=== PATIENT | female | born 1975 | race Caucasian/White ===

== ENCOUNTER 2018-08-17 06:39 | Day surgery (SDC) | payer OTHER, SELFPAY ==
[2018-08-12 12:35] LABS: Hematocrit 40.8 % (37-47); Hemoglobin 13.5 g/dl (12.0-15.0); Mean Corp Hgb Conc 33.1 g/gl (32-36); Mean Corpuscular Hgb 30.6 pg (27.0-32.0); Mean Corpuscular Volume 92.5 fL (81-99); Mean Platelet Vol. 11.5 fl (6.2-12.0); Platelet Count 238 K/mm3 (150-450); RBC Distribution Width CV 12.6 % (11.6-14.6); RBC Distribution Width SD 42.6 fl (35.1-43.9); Red Blood Count 4.41 M/mm3 (4.2-5.4)
[2018-08-12 12:37] LABS: Scan Indicated on CBC? Y/N NO
[2018-08-12 12:45] LABS: Prothrombin Time (Protime)PT. 13.2 SECONDS (11.7-14.9)
[2018-08-12 12:46] LABS: Partial Thromboplast Time 24.6 Seconds (24.1-36.2)
[2018-08-12 13:09] LABS: Pregnancy, Serum, hCG Quali. NEGATIVE Negative (0-9 Nonpreg)
--- NOTE | 2018-08-16 12:43 | PCM.HP.BLA ---
History and Physical Date of Admission: 08/17/18 Surgical History and Physical Alexandria Smalls, a 42 year old female 2 0 0 0 2, presents for D and C and hysteroscopy on August 17, 2018 at 10:45. -- Irregular Menses, Endometrial Polyps -- Really tired of this as she has tried multiple pills to help and nothing is helping. U/S shows endometrial polyps. MEDICATIONS HISTORY: Current medications prescribed by our practice are: 1. Ortho-Cyclen (28) 0.25 mg-35 mcg tablet, One pill by mouth once a day Patient is also takin. Calcium 600 + D(3) 600 mg(1,500mg) -400 unit Tablet, One pill by mouth once a day ALLERGIES: NKDA Infections - Chicken pox Illnesses - mild anemia Accidents - None Hospitalizations - see surgery Review of Systems: GENERAL - Denies fever, or chills SKIN - Denies skin changes EYES - Denies visual changes EARS - Denies difficulty hearing NOSE - Denies nasal congestion or bleeding MOUTH - Denies sore throat or difficulty swallowing NECK - Denies pain or swelling RESPIRATORY - Denies shortness of breath or wheezing CARDIOVASCULAR - Denies palpitations or chest pain GASTROINTESTINAL - Denies nausea, vomiting, diarrhea, constipation GENITOURINARY - Denies dysuria, frequency of urination, incontinence of urine MUSCULOSKELETAL - Denies joint or muscle pain NEUROLOGICAL - Denies localized numbness or weakness PSYCHIATRIC - Denies depression or anxiety ENDOCRINE - Denies heat or cold intolerance, weight loss or gain HEMATO-IMMUNOLOGIC - Denies excesive bleeding with cuts SOCIAL HISTORY: Alcohol Use - RARELY Smoking - Never Diet - no special diet Lifestyle - moderate stress lifestyle and Exercise - regular Seat Belt Use - always Employer - [employer] 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 Father: Heart Disease. Brother: COPD, Alcoholism and DM II. Sister: Osteoarthitis, Hyperlipidemia and DM II. MENSTRUAL HISTORY: LMP Known?- DefiniteAmount/Duration - 6-7 DAYS, Regularity - prolonged, Frequency - monthly days, LMP - 07/19/18, Age Onset Menarche - 11 PAST PREGNANCIES: Total Pregnancies - 2; Full Term Pregnancies - 2; Premature - 0; Abortions, Induced - 0; Abortions, Spontaneous - 0; Ectopics - 0; Multiple Births - 0; Living Children - 2 SURGICAL HISTORY: 1. Ganglion Cyst Removed x 2 ; Romario Miller - 2. (L) Breast Lumpectomy 2001 ; Romario Miller - 3. (L) Ovarian Cyst 2002 ; Juan Garza MD - PHYSICAL EXAM BP- 120/80 Sitting, Left arm, regular cuff Weight- 175.06982 lbs Height- 66 inch BMI:28.30 CONSTITUTIONAL - NAD, well nourished, and well developed SKIN - No rash, lesions, or ulcers HEENT - Normocephalic, PERRLA, EOMI NECK - No nodes, no nuchal rigidity and thyroid normal size and texture LYMPH NODES - Palpation of lymph nodes in neck and groins within normal limits LUNGS - CTA x2 without wheezes, crackles or rales CARDIAC - Regular rate and rhythm without rubs, murmurs, or gallops BREAST - No dominant masses, no tenderness, no axillary adenopathy, no nipple discharge, no skin changes ABDOMEN - Without hepatosplenomegaly, distention, masses, rebound, or guarding; normal bowel sounds; no hernias EXTREMITIES - No edema or calf tenderness NEUROLOGICAL - Cranial nerves II-XII grossly intact PSYCHIATRIC - A and O to time, place, person, mood and affect External Genitial Vagina - non-tender without lesions Urethra/Urethral Meatus - non-tender Bladder - non-tender Vagina - vaginal verdugo are pink and moist without loss of rugae and no evidence of atropy Cervix - without cervical motion tenderness and has normal size and features without evident lesions Uterus - multiparous size 6 cm & wt 75-125 g Adnexa - clear without massess or tenderness ASSESSMENT/PLAN: 1. Abnormal Uterine Bleeding, Unspec Reviewed results of pelvic u/s showing at least 2 EM polyps present. Plan to proceed with D and C and H/S. Discussed RBAs and all questions answered.
[2018-08-17] VITALS (9 sets, daily range): BP systolic 104–142; BP diastolic 73–87; PULSE 58–79; RESP 16; TEMP 36.6–36.9; O2SAT 97–100; BMI 28.7
--- NOTE | 2018-08-17 | IMM_PTH ---
PATIENT: DANIEL NGUYEN LOC: [facility] U#:[id number] AGE/SX: 42/F ROOM: RE08/17/[address]: Dr. Arnoldo Vuong MD : 1975 BED: DIS: 08/17/2018 SPEC #: [id number] RECD: 08/18/18 12:30 STATUS: ADRI RERazia #: [id number] GAMALIEL: 08/17/18 00:[address]: Arnoldo Vuong DEPT: IMMUNOHISTOCHEMISTRY RECD BY: La Gil ENTERED: 08/18/18 12:31 SP TYPE: IMMUNO OTHR DR: Dr. Cary Cervantes MD Tissues: Endometrium, NOS Procedures: CD138 (initial) CD138 (add) PHYSICIAN & INSTITUTION [place] [id number] SPECIMEN INFORMATION: Tissue Source: Endometrial curettings and polyps Clinical Info: Abnormal uterine bleeding Specimen Number: [id number] #1-3 CPT code: 64641, 54721 x2 METHODOLOGY: Deparaffinized sections of prefer/formalin-fixed tissue or PAP/DQ stained slides are incubated with monoclonal/polyclonal antibodies/oligonucleotide probes. Localization is made via biotin free immunoperoxidase method. Appropriate controls are performed and reacted as expected. Results on target cell population are indicated in the following table: RESULTS: ANTIBODY / CLONE RESULT Block 1 CD138 (B-A38) negative Block 2 CD138 (B-A38) positive, rare cells Block 3 CD138 (B-A38) negative These tests were developed and their performance characteristics determined by [facility]. They may not have been cleared or approved by the U.S. Food and Drug Administration. The FDA has determined that such clearance or approval is not necessary. INTERPRETATION: Endometrial curettings and polyps: Rare plasma cells are noted suspicious for chronic endometritis. SJ:ramiro 08/19/18
--- NOTE | 2018-08-17 | EMB_PTH ---
PATIENT: DANIEL NGUYEN LOC: [facility] [place] U#:[id number] AGE/SX: 42/F ROOM: RE08/17/[address]: Dr. Arnoldo Vuong MD : 1975 BED: DIS: 08/17/2018 SPEC #: [id number] RECD: 08/17/18 10:01 STATUS: ADRI LIANET #: [id number] GAMALIEL: 08/17/18 00:[address]: Arnoldo Vuong DEPT: SURGICAL PATHOLOGY RECD BY: Saman Birmingham ENTERED: 08/17/18 10:01 SP TYPE: ENDOM BX/C MANJINDER DR: Dr. Cary Cervantes MD Tissues: Endometrium, NOS Procedures: Surgery Specimen Level IV HEADER OPERATION: Hysteroscopy, dilation and curettage PRE-OP DIAGNOSIS: Abnormal uterine bleeding TISSUE SUBMITTED: Endometrial curettings and polyps MICROSCOPIC DIAGNOSIS Endometrial curettings and polyp: Consistent with exogenous hormone effects with extensive glandular breakdown. Suspicious for chronic endometritis. SJ:ramiro 08/18/18 COMMENT Immunohistochemistry ([id number]) shows rare plasma cells, suspicious for chronic endometritis. Case has been reviewed in consultation with Dr. Fagan who concurs with the above diagnosis. IDC:AM MICROSCOPIC DESCRIPTION Slides are reviewed. GROSS DESCRIPTION Received in fixative is one container labeled with the patient's name and designated endometrial curettings and polyp. The specimen consists of multiple fragments of pink hemorrhagic soft tissue mixed with mucoid tissue that in aggregate measure 7.5 x 3 x 0.3 cm. The entire specimen is submitted in three cassettes. / MERNA:ramiro 08/17/18 TC:5 CPT: 81038
[2018-08-17 07:18] LABS: Internal QC Validated? YES +Cl - CLEAR BKGD; Pregnancy, Urine Negative Negative
--- NOTE | 2018-08-17 08:11 | OP.PCM_ITS ---
Operative Report Date of Procedure: 08/17/18 Surgeon: Arnoldo Vuong MD, FACOG Anesthesia: Rasta Willis CRNA Type of Anesthesia: General LMA Pre-Op Diagnosis: Menorrhagia, Endometrial Polyps Postoperative diagnosis: Menorrhagia, Endometrial Polyps Procedure: Diagnostic Hysteroscopy, Dilation and Curettage Findings: 8-10 cm endometrial cavity with multiple polyps visualized. No fibroids noted. [place] endometrium. Cervix protruded to within 2-3 cm of the vaginal introitus with LAVH technically feasible. Indications: This is a 42 year old patient who has the above diagnosis. The patient has been counseled regarding the risk and indications of this procedure including the possibility of bleeding, infection, and injury to surrounding structures such as bowel bladder. All questions were answered to reconsider the patient well-informed. Procedure: The patient was taken to the operating room where after induction of general anesthesia, she was placed in the dorsolithotomy position and prepped and draped in the usual sterile fashion. The bladder was drained of approximately 10 cc of clear yellow urine with a catheter. Anterior cervix was grasped with the tenaculum and dilated to about 4-5 mm. A 3 mm hysteroscope was placed in the uterus of the above findings were noted. Cervix was dilated to about 7-8 mm and uterus was gently curetted removing all contents. Hysteroscope was reinserted and all material was noted to be removed. In the course of the procedure approximately 100 cc of saline distending media was used and virtually all of this was recovered. Patient tolerated procedure well was taken to recovery room in satisfactory condition sponge instrument and needle counts were all reportedly correct. Estimated blood loss for the case was minimal. Cefotetan 2 g IV was given prior to beginning the operative procedure. Specimens to pathology was endometrial curettings
--- NOTE | 2018-08-17 08:12 | DCINST_ITS ---
Discharge Diet: No Restrictions Discharge Activity: Return to Normal Activity, May Shower, May Take a Tub Bath Call your doctor if you observe: Fever of 101 or Higher, Inability to urinate, Inability to have a bowel movement, Using more than one pad per hour Allergies/Adverse Reactions: Allergies No Known Allergies Allergy (Verified 08/12/18 15:44) Medications to take at Discharge Calcium Carbonate [Calcium] 600 mg PO DAILY 08/12/18 Sprintec 1 cap PO DAILY 08/12/18 Primary Care Physician: Cary Cervantes MD [Primary Care Provider] - Test Results: Test results from this visit will be discussed in further detail at your follow- up appointment, if applicable. Please Follow Up With: Arnoldo Vuong MD When: 2-3 weeks
== END 2018-08-17 10:15 | disposition home or self-care (01) ==
LOC: SDC 06:40 → AC 06:41
PROVIDERS: Anesthesiology; Visit Provider Obstetrics & Gynecology
PROC: 0UDB8ZZ Extraction of Endometrium, Via Natural or Artificial Opening Endoscopic (ICD-10-PCS; CPT 58558; principal; 2018-08-17 08:10)
DX: N92.0 Excessive and frequent menstruation with regular cycle (principal); N84.0 Polyp of corpus uteri
CPT/HCPCS: 00952; 58558; 36415; 81025; 84703; 85027; 85610; 85730; 86850; 86900; 88305; 88341; 88342; J7120

== ENCOUNTER → 2018-09-18 12:05 | Outpatient (CLI) | payer OTHER, SELFPAY | PROVIDERS: Visit Provider Obstetrics & Gynecology | DX: N93.9 Abnormal uterine and vaginal bleeding, unspecified (principal) | CPT/HCPCS: 85014; 85018 ==

== ENCOUNTER → 2020-10-17 11:45 | Outpatient (CLI) | payer OTHER, SELFPAY ==
[2018-08-17 07:16] VITALS: BMI 28.7
[2020-10-23 20:02] LABS: HPV Reflexed? NOT INDICATED
== END ==
PROVIDERS: Visit Provider Obstetrics & Gynecology
DX: Z12.4 Encounter for screening for malignant neoplasm of cervix (principal)
CPT/HCPCS: 88175; G0145

== ENCOUNTER 2021-12-10 08:48 | Day surgery (SDC) | payer OTHER, SELFPAY ==
[2021-12-06 14:46] LABS: Hemoglobin 13.7 g/dL (12.0-15.0); Mean Corp Hgb Conc 32.6 g/dL (32-36); Mean Platelet Vol. 11.4 fl (6.2-12.0); Platelet Count 267 K/mm3 (150-450); RBC Distribution Width CV 12.4 % (11.6-14.6); RBC Distribution Width SD 43.3 fl (35.1-43.9); Red Blood Count 4.42 M/mm3 (4.2-5.4); White Blood Count 9.7 K/mm3 (4.4-11.0)
[2021-12-06 14:54] LABS: International Normalized Ratio 1.1; Prothrombin Time (Protime)PT. 13.1 SECONDS (11.7-14.9)
[2021-12-06 14:55] LABS: Partial Thromboplast Time 25.6 Seconds (24.1-36.2)
[2021-12-06 14:56] LABS: Internal QC Validated? YES +Cl - CLEAR BKGD; Pregnancy, Urine Negative Negative
[2021-12-06 15:20] LABS: Creatinine, Serum 0.66 mg/dL (0.55-1.02); EST Glomerular Filtration Rate 103 mL/min (>60); Est Glom Filt Rate - Afr Amer 124 mL/min (>60)
[2021-12-10] VITALS (14 sets, daily range): BP systolic 112–165; BP diastolic 75–99; PULSE 59–77; RESP 14–16; TEMP 36.1–37.2; O2SAT 73–100; BMI 28.8
--- NOTE | 2021-12-10 07:28 | HP.PCM_ITS ---
History and Physical Date of Admission: 12/10/21 Surgical History and Physical Alexandria Smalls, a 46 year old female 2 0 0 0 2, presents for RAVH/BS on December 10, 2021 at . -- Recurrent Endometrial Polyps and Menorrhagia -- Hx of D and C 08/17/2018. Afterward states that she started with intermittent gushes of blood. SHe states that had an episode subsided and patient thought was doing better, but then woke in the middle of the night and had bleed through her clothes and bedding. She was at work and states that saturated her clothes and onto chair she was sitting on. Regular monthly menses while taking ortho cyclen for control. Now has bleeding 2 or 3 times per cycle between menses. This started about 6 months ago. 2 to 3 years ago she had similar bleeding, had a D and C where multiple endometrial polyps were visualized. Since then her bleeding has been well controlled with OCPs. Irregular menses which began 05/19. Has tried switching OCPs to no avail. MEDICATIONS HISTORY: Patient is also takin. Calcium 600 + D(3) 600 mg(1,500mg) -400 unit Tablet, One pill by mouth once a day ALLERGIES: NKDA Infections - Chicken pox Illnesses - mild anemia Accidents - None Hospitalizations - see surgery Review of Systems: GENERAL - Denies fever, or chills SKIN - Denies skin changes EYES - Denies visual changes EARS - Denies difficulty hearing NOSE - Denies nasal congestion or bleeding MOUTH - Denies sore throat or difficulty swallowing NECK - Denies pain or swelling RESPIRATORY - Denies shortness of breath or wheezing CARDIOVASCULAR - Denies palpitations or chest pain GASTROINTESTINAL - Denies nausea, vomiting, diarrhea, constipation GENITOURINARY - Denies dysuria, frequency of urination, incontinence of urine MUSCULOSKELETAL - Denies joint or muscle pain NEUROLOGICAL - Denies localized numbness or weakness PSYCHIATRIC - Denies depression or anxiety ENDOCRINE - Denies heat or cold intolerance, weight loss or gain HEMATO-IMMUNOLOGIC - Denies excesive bleeding with cuts SOCIAL HISTORY: Alcohol Use - RARELY Smoking - Never Diet - no special diet Lifestyle - moderate stress lifestyle and Exercise - regular Seat Belt Use - always 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 Father: Heart Disease. Brother: COPD, Alcoholism and DM II. Sister: Osteoarthitis, Hyperlipidemia and DM II. MENSTRUAL HISTORY: LMP Known?- DefiniteAmount/Duration - 5 to 7 days, Regularity - Regular, Frequency - monthly days, LMP - 11/16/21, Age Onset Menarche - 11 PAST PREGNANCIES: Total Pregnancies - 2; Full Term Pregnancies - 2; Premature - 0; Abortions, Induced - 0; Abortions, Spontaneous - 0; Ectopics - 0; Multiple Births - 0; Living Children - 2 SURGICAL HISTORY: 1. Ganglion Cyst Removed x 2 ; Romario Miller 2. (L) Breast Lumpectomy 2001 ; Romario Miller 3. (L) Ovarian Cyst 2002 ; Juan Garza MD 4. 08/17/2018 dx hysteroscopy, D and C ; Arnoldo Vuong M.D. PHYSICAL EXAM BP- 152/86 Sitting, Right arm, regular cuff Weight- 179.0 lbs Height- 66 inch BMI:28.9 CONSTITUTIONAL - NAD, well nourished, and well developed SKIN - No rash, lesions, or ulcers HEENT - Normocephalic, PERRLA, EOMI NECK - No nodes, no nuchal rigidity and thyroid normal size and texture LYMPH NODES - Palpation of lymph nodes in neck and groins within normal limits LUNGS - CTA x2 without wheezes, crackles or rales CARDIAC - Regular rate and rhythm without rubs, murmurs, or gallops BREAST - No dominant masses, no tenderness, no axillary adenopathy, no nipple discharge, no skin changes ABDOMEN - Without hepatosplenomegaly, distention, masses, rebound, or guarding; normal bowel sounds; no hernias EXTREMITIES - No edema or calf tenderness NEUROLOGICAL - Cranial nerves II-XII grossly intact PSYCHIATRIC - A and O to time, place, person, mood and affect External Genitial Vagina - non-tender without lesions Urethra/Urethral Meatus - non-tender Bladder - non-tender Vagina - vaginal verdugo are pink and moist without loss of rugae and no evidence of atropy Cervix - without cervical motion tenderness and has normal size and features without evident lesions Uterus - multiparous size 6 cm & wt 75-125 g Adnexa - clear without masses or tenderness ASSESSMENT/PLAN: Menorrhagia Likely due to recurrent endometrial polyps. Patient's blood pressure is moderately elevated so OCPs stopped. We discussed treatment options including repeating a D and C versus proceeding with hysterectomy and patient desires the hysterectomy. Plan to proceed with RAVH/BS. Discussed risks, benefits, and alternatives and all questions were answered.
[2021-12-10 09:21] LABS: Bedside Glucose 110 mg/dL (70-110)
[2021-12-10] MEDS: Lactated Ringers 1,000 ML 40 ML IV (09:36)
[2021-12-10] MEDS: Gabapentin 600 MG Tablet PO (09:36)
[2021-12-10] MEDS: Acetaminophen 500 MG Tablet 1000 MG PO (09:36)
[2021-12-10 09:42] LABS: Internal QC Validated? YES +Cl - CLEAR BKGD; Pregnancy, Urine Negative Negative
--- NOTE | 2021-12-10 11:00 | HYST_PTH ---
PATIENT: DANIEL NGUYEN LOC: [facility] [place] U#:[id number] AGE/SX: 46/F ROOM: RE12/10/[address]: Dr. Arnoldo Vuong MD : 1975 BED: DIS: 12/10/2021 SPEC #: [id number] RECD: 12/11/21 09:12 STATUS: ADRI MARTINI #: [id number] GAMALIEL: 12/10/21 11:[address]: Arnoldo Vuong DEPT: SURGICAL PATHOLOGY RECD BY: Cecilia Slade ENTERED: 12/11/21 10:17 SP TYPE: HYSTERECT OTHR DR: Dr. Cary Israel MD Tissues: Uterus, NOS Procedures: Surgery Specimen Level V HEADER OPERATION: ERAS, lap robotic hysterectomy, bilateral salpingectomy PRE-OP DIAGNOSIS: Menorrhagia TISSUE SUBMITTED: Uterus and bilateral fallopian tubes, ovarian cyst MICROSCOPIC DIAGNOSIS Uterus, bilateral fallopian tubes and ovarian cyst, hysterectomy and bilateral salpingectomy: Cervix ? acute and chronic cystic cervicitis. Endometrium ? proliferative endometrium. Myometrium ? adenomyosis. - An intramural leiomyoma (6 mm in greatest dimension). Bilateral fallopian tubes - no pathologic diagnosis. SJ:ramiro 12/12/2021 COMMENT Tissue consistent with ovarian cyst is not identified in the specimen. Case has been reviewed in consultation with Dr. Fagan who concurs with the above diagnosis. IDC:AM MICROSCOPIC DESCRIPTION Slides are reviewed. GROSS DESCRIPTION Received in fixative is one container labeled with the patient's name and designated uterus. The specimen consists of a uterus with attached cervix and attached right and left fallopian tubes. The uterus with cervix measures 9.5 x 6 x 4.5 cm and weighs 95 gm. The ectocervix is oval in contour. The endocervical canal measures 3.5 cm in length and is grossly unremarkable. The triangular endometrial cavity measures 4 x 2.8 cm. The reddish-long, velvety endometrium measures up to 0.2 cm in thickness. The myometrium measures 2 cm in average thickness and contains small, firm, rubbery nodules measuring 6 mm grossly consistent with a leiomyoma. The right and left fallopian tubes are similar in appearance with average lengths of 7 cm and average diameters of 0.4 cm. Normal fimbriated ends are identified on both fallopian tubes. Sleeper Cutter sections are submitted in nine cassettes as follows: 1??anterior cervix, 2 - posterior cervix, 3 & 4 - anterior uterine wall, 5 & 6 - posterior uterine wall, 7??myometrial nodule, 8 - right fallopian tube, 9 - left fallopian tube. / AM:ramiro 12/11/2021 TC:5 CPT: 83126
[2021-12-10] MEDS: Cefazolin 2 GM in 0.9% Normal Saline 100 ML IV (11:30)
[2021-12-10] MEDS: Ropivacaine 0.5% 30 ML Vial (11:57)
--- NOTE | 2021-12-10 13:34 | OP.PCM_ITS ---
Report of Operation Date of Procedure: 12/10/21 Pre-Operative Diagnosis: Recurrent Endometrial Polyps and Menorrhagia Post-Operative Diagnosis: Recurrent Endometrial Polyps and Menorrhagia Surgery/Procedure Performed:: Robotic Assisted Vaginal Hysterectomy and Bilateral Salpingectomy Description of Surgical Findings:: 10 cm uterus with normal-appearing fallopian tubes and ovaries. Bilateral ovarian cysts which were approximately 1.5 cm in size. Small portion of right ovarian cyst sent with specimen. Varicose veins in both adnexa. Surgeon: Arnoldo Vuong assisted living coordinator: Javier Mata Type of Anesthesia: General (Endotracheal) Anesthesiologist: Prince Mazariegos Specimen's removed: Uterus and bilateral fallopian tubes. Portion of right ovarian cyst. Drains: Jara to straight drain (removed after procedure) Estimated Blood Loss (mL): Minimal Fluids Replaced: Crystalloid Description of Procedure: Surgeon: Arnoldo Vuong MD, FACOG Indication: This is a 46year old patient who has been having problems with heavy periods. She previously had a D&C for endometrial polyps and her heavy bleeding returned. Given this she desired that we proceed with this procedure. Conservative measures have not been helpful. The patient has been counseled regarding the risks, benefits and alternatives of this procedure including the possibility of bleeding, infection, and injury to surrounding structures such as bowel bladder and all questions were answered. She understands that if BSO is needed that she will need to be on HRT for an indefinite period of time. Procedure: Pt taken to the operating room where, after induction of general anesthesia, the patient was prepped and draped in the usual sterile fashion and placed on a non-slip Huggy-u-vac device. Trendelenburg test was satisfactory. Bladder was drained of urine with a Jara catheter which was left in place. Anterior cervix grasped and cervix was dilated to about 3-4 mm. Uterus sounded to 9 cms. 0-Vicryl suture was placed at the 3:00 and 9:00 position of the cervix. A small Advincula Coke Handling Supervisor Uterine Manipulator was then placed in the uterus and attention was turned to the laparoscopic portion of the procedure. Ropivocaine 0.5% was injected approximately 2-3 cm superior to the umbilicus and an 8 mm robotic camera port was introduced directly with intraperitoneal placement confirmed with CO2 insufflation. 8 mm robotic side ports were introduced under direct visualization approximately 11 cm lateral and 2 cm inferior to the umbilical port. A 5 mm left upper quadrant port was introduced and airseal insufflation with CO2 was started. The above findings were noted. Robot was docked without difficulty and attention turned to the robotic portion of the procedure. Approximately 30 cc of Ropivicaine was used. Bilateral mesosalpinx were ligated with 35 harkins bipolar coagulation to the level of the round ligament. Ovarian cysts were opened and a portion of the right ovary was sent after ligating the base of the cyst. The posterior aspect of the cervix was identified and then opened for about 1 cm using 25 watt monopolar cautery. Bladder flap was opened and divided to the level of the round ligaments using monopolar cautery. Progressive bites were then ligated on each side of the cervix with 35 harkins bipolar cautery to the uterine arteries. The anterior vaginal mucosa was entered and cervix circumscribed with monopolar cautery. Uterus and attached tubes were removed through the vagina. Vaginal cuff was closed first with 0-Vicryl Jose Angel stitches placed at each angle followed by closure of the mid-cuff with 0-Monocryl V-lock suture in two layers. Pelvis was copiously irrigated with saline and the right ureter was noted to peristalse. Flory was placed to help with some oozing which was persisting. Robot was undocked and trocars were removed with as much gas as possible. Incisions were closed with 4-0 Monocryl subcuticular sutures and incisions covered with steri-strips. The patient tolerated the procedure well and was taken to the recovery room in satisfactory condition. Sponge, instruments and needle counts were all correct. There were no apparent complications of the surgery. Ancef 2 gms IV was given prior to the procedure. Grafts/Implants Used: None Complications None Admit VTE Documentation VTE Present on Admission: Yes VTE Mechan Device Prophylaxis: SCD's
--- NOTE | 2021-12-10 13:40 | PCM.DC ---
Discharge Instructions Diet Discharge Diet: No restrictions Activity Discharge Activity: May Shower and May Take a Tub Bath May resume sexual activity in: 6 weeks (nothing in the vagina.) Lifting Restrictions: 25 pounds for 6 weeks. Additional Activity Instructions:: Nothing in the vagina for 6 weeks please; no lifting more than 20-25 lbs for 6 weeks. Use Ibuprophen 800 mg orally every 8 hours as needed for pain. Can also add Tylenol 1000 mg every 8 hours if needed for pain. If Ibuprophen and Tylenol are not effective then use the Oxycodone but keep in mind it can cause serious constipation issues. Drink lots of water. Call if bleeding more than a pad per hour. Use the colace as constipation is a big issue after this type of surgery. Steps and walking are OK. Activity is encouraged but do not over do it !! Dressing / Incision Call your doctor if your incision/area has: Continuous Slow Oozing, Sudden Increased Bleeding, Increased Pain/ Swelling, Increased Redness and Foul Smelling Discharge Call your doctor if you observe: Fever of 101 or Higher, Inability to urinate, Inability to have a bowel movement, Using more than 1 pad per hour and - (Some vaginal bleeding may be noted for up to 4-8 weeks.) Cleanse incision/area with: - (Let the soapy water run over your incision, rinse and pat dry.) Additional Dressing/Incision Instructions:: The white strips (Steri Strips) on your incisions will fall off on their own. If they fall off and it bothers you it is okay to put Band-Aids across the incisions. Follow Up Care Please Follow Up With: Arnoldo Vuong MD When: Call [phone] for an appointment to be seen in 2 weeks. Test Results: Test results from this visit will be discussed in further detail at your follow-up appointment, if applicable. Discharge Plan Admission Primary Reason for Your Visit: Robotic Vaginal Hysterectomy Attending Provider: Arnoldo Vuong Primary Care Provider: Cary Israel Discharge Orders/Prescriptions Prescriptions: New oxycodone 5 mg capsule 5 mg PO Q6H PRN (Reason: pain (scale score 7-10)) 7 Days Qty: 7 RF: 0 docusate sodium 100 mg tablet 100 mg PO BID PRN (Reason: constipation) Qty: 60 RF: 1 Continued calcium carbonate 600 MG tablet 600 mg PO DAILY RF: 0 multivitamin Capsule 1 cap PO DAILY RF: 0 Vitamin B-6 50 mg Capsule 50 mg PO DAILY RF: 0 Referrals / Follow Up: Cary Israel MD [Primary Care Provider] - Disposition Disposition (needs filled in before D/C Order can be placed): Home, Self Care
[2021-12-10] MEDS: Lactated Ringers 1,000 ML 100 ML IV ×2 (14:00→15:24)
== END 2021-12-10 23:59 | disposition home or self-care (01) ==
LOC: SDC 08:48 → AC 08:49
PROVIDERS: Anesthesiology; PCP Family Medicine; Referring Provider Obstetrics & Gynecology; Visit Provider Obstetrics & Gynecology
PROC: 0UT90ZZ Resection of Uterus, Open Approach (ICD-10-PCS; CPT 58571; principal; 2021-12-10 10:40)
DX: D25.1 Intramural leiomyoma of uterus (principal); N92.0 Excessive and frequent menstruation with regular cycle; N84.0 Polyp of corpus uteri; N80.0 Endometriosis of uterus
CPT/HCPCS: 58571; S2900; 00840; 36415; 81025; 82565; 82962; 83735; 85027; 85610; 85730; 86850; 86900; 86901; 88307; J7120; J2405

== ENCOUNTER → 2023-07-03 | Outpatient (CLI) | payer OTHER, SELFPAY ==
--- NOTE | 2023-07-03 09:56 | VDLE_ITS ---
Reason For Study: Right leg swelling RIGHT LEFT GSV is normal. CFV is compressible, spontaneous, phasic, CFV is compressible, spontaneous, phasic, competent, and demonstrates normal competent and demonstrates normal augmentation. augmentation. FV is compressible, spontaneous, phasic, competent and demonstrates normal augmentation. POP V is compressible, spontaneous, phasic, competent and demonstrates normal augmentation. T/P Trunk is compressible. PTV is compressible. RT PerV is compressible. Large nonvascularized structure noted at the right proximal moore. Procedure This is a venous duplex using B-mode, color flow and spectral Doppler. Exam performed in department. A preliminary report was called and/or faxed to [facility]. VL/Venous Duplex US, Unilateral Interpretation Summary There is no evidence of right lower extremity deep vein thrombosis. Right great saphenous vein appears patent and compressible segmentally. Large irregular complex nonvascula r structure right proximal tibia. Etiology not clear upon imaging. Normal flow patterns left common femoral vein Ordering Physician: Oxana Damon Referring Physician: Cary Israel Performed By: Latasha Turk RVT
== END | disposition home or self-care (01) ==
LOC: CVS 09:55
PROVIDERS: PCP Family Medicine; Referring Provider Physician Assistant; Visit Provider Physician Assistant
DX: R22.41 Localized swelling, mass and lump, right lower limb (principal)
CPT/HCPCS: 93971